=== PATIENT | female | born 1980 | race Caucasian/White ===

== ENCOUNTER 2020-01-23 22:14 | Emergency (ER) | payer OTHER ==
--- NOTE | 2020-01-23 23:06 | ERPHSYRPT ---
- History of Present Illness Time Seen by Provider: 01/23/20 22:40 Source: patient Exam Limitations: no limitations Patient Subjective Stated Complaint: pt states that she has "congestion, cough and hard to breathe", pt states that the symptoms started 3 weeks ago, pt states that the symptoms started to get better than have gotten worse the past few days, pt states that today she was vomiting up mucus from coughing so hard, pt states no fever Triage Nursing Assessment: pt ambulated into the er, pt is axo x4, afribile, vital wnl, dry cough present, white patch on rt eardrum, wheezing present in all lobes, mucus membranes pink and moist Physician History: This is a 39-year-old white female who has had 3-week history of cough congestion sore throat symptoms. Patient has use [id number] Mucinex and [place] cold and flu. She thought she was getting better but in the last few days her symptoms have worsened. Patient's daughter has similar symptoms. Patient denies fever she denies myalgias arthralgias. She has had no nausea vomiting or diarrhea. Patient has taken Keflex in the past without any problems Timing/Duration: week(s) Cough Quality/Degree: moderate, dry cough Possible Cause: occasional episodes Modifying Factors: Improves With: coughing Associated Symptoms: cough, muscle aches, nasal congestion, sore throat, No fever, No chills Allergies/Adverse Reactions: Penicillins Allergy (Mild, Verified 01/23/20 22:41) Rash Sulfa (Sulfonamide Antibiotics) Allergy (Mild, Verified 01/23/20 22:41) Rash Hx Tetanus, Diphtheria Vaccination/Date Given: No Hx Influenza Vaccination/Date Given: No Hx Pneumococcal Vaccination/Date Given: No Immunizations Up to Date: Yes Travel Risk - International Travel Have you traveled outside of the country in past 3 weeks: No Have you or anyone close to you been diagnosed with or: No Do your reside in a community with a known COVID-19 case?: No - Coronavirus Screening Has patient experienced Coronavirus symptoms: No Symptoms experienced: respiratory symptoms (i.e.C[place],shortness of breath) ( Only cough) - Review of Systems Constitutional: No Symptoms Eyes: No Symptoms Ears, Nose, & Throat: No Symptoms Respiratory: Cough Cardiac: No Symptoms Abdominal/Gastrointestinal: No Symptoms, No Abdominal Pain, No Nausea, No Vomiting, No Diarrhea Genitourinary Symptoms: No Symptoms Musculoskeletal: No Symptoms Skin: No Symptoms Neurological: No Symptoms Psychological: No Symptoms Endocrine: No Symptoms Hematologic/Lymphatic: No Symptoms Immunological/Allergic: No Symptoms All Other Systems: Reviewed and Negative - Past Medical History Pertinent Past Medical History: No Neurological History: No Pertinent History ENT History: No Pertinent History Cardiac History: No Pertinent History Respiratory History: No Pertinent History Endocrine Medical History: No Pertinent History Musculoskeletal History: No Pertinent History GI Medical History: No Pertinent History History: No Pertinent History Psycho-Social History: No Pertinent History Female Reproductive Disorders: No Pertinent History - Past Surgical History Past Surgical History: Yes Neuro Surgical History: No Pertinent History Cardiac: No Pertinent History Respiratory: No Pertinent History Gastrointestinal: No Pertinent History Genitourinary: No Pertinent History Musculoskeletal: No Pertinent History Female Surgical History: No Pertinent History Other Surgical History: partial tubalectomy - Social History Smoking Status: Current every day smoker Exposure to second hand smoke: Yes Drug Use: none Patient Lives Alone: No - Female History Hx Now: No - Nursing Vital Signs Nursing Vital Signs: Initial Vital Signs Temperature 98.3 F 01/23/20 22:23 Pulse Rate 84 01/23/20 22:23 Respiratory Rate 17 01/23/20 22:23 Blood Pressure 116/83 01/23/20 22:23 O2 Sat by Pulse Oximetry 96 01/23/20 22:23 Pain Scale Pain Intensity 0 - Physical Exam General Appearance: no apparent distress, alert, anxiety, obese Eye Exam: PERRL/EOMI, eyes nml inspection Ears, Nose, Throat Exam: normal ENT inspection, moist mucous membranes Neck Exam: normal inspection, non-tender, supple, full range of motion Respiratory Exam: normal breath sounds, lungs clear, airway intact, No chest tenderness, No respiratory distress, No accessory muscle use, No rhonchi, No wheezing, No stridor Cardiovascular Exam: regular rate/rhythm, normal heart sounds, normal peripheral pulses Gastrointestinal/Abdomen Exam: soft, normal bowel sounds, No tenderness Pelvic Exam: not done Rectal Exam: not done Back Exam: normal inspection, normal range of motion, No CVA tenderness, No vertebral tenderness Extremity Exam: normal inspection, normal range of motion, pelvis stable Neurologic Exam: alert, oriented x 3, cooperative, program management specialist II-XII nml as tested Skin Exam: normal color, warm, dry Lymphatic Exam: No adenopathy SpO2 Interpretation: normal SpO2: 96 O2 Delivery: Room Air - Course Nursing assessment & vital signs reviewed: Yes - Progress Progress: improved Air Movement: good Progress Note: 01/23/20 23:06 Differential diagnosis: Pneumonia, bronchitis, upper respiratory infection. Medical decision making: This patient symptoms have been present for 3 weeks. I do not feel is necessary to obtain a respiratory panel to evaluate for influenza a B and RSV. I do not feel the patient requires a strep test. We will cover her with antibiotics primarily because of the persistence of this patient's symptoms. Blood Culture(s) Obtained: No Antibiotics given: Yes Counseled pt/family regarding: diagnosis, need for follow-up - Departure Departure Disposition: Home Clinical Impression: Bronchitis Condition: Stable Critical Care Time: No Referrals: [facility] [Primary Care Provider] - Additional Instructions: Drink plenty of fluids. Follow-up with your primary care physician for persistent symptoms. Take your medication as prescribed. Forms: Work/School Release Form Prescriptions: Albuterol 8 gm Mdi Hfa [Ventolin Hfa MDI] 8 gm IH Q4H #1 hfa.aer.ad Cefdinir 300 mg PO BID 7 Days #14 capsule Hydrocodone Bit/Acetaminophen [Hydrocodone-Acetaminophen Soln] 10 ml PO Q6H # 120 ml Prednisone 10 mg [Deltasone 10 mg] 10 mg PO TID #12 tablet
[2020-01-23] MEDS ORDERED: Rocephin 1000 MG INJ IM ONE (23:12)
[2020-01-23] MEDS ORDERED: HYDROCODONE-ACETAMIN 2.5-108/5 ML SOLUTION PO STA (23:14)
[2020-01-23] MEDS ORDERED: XYLOCAINE 1% HCL 20 ML MDV IJ ONE (23:19)
[2020-01-23] MEDS ORDERED: DELTASONE 20 MG ONE (23:32)
[2020-01-23] MEDS ORDERED: HYDROCODONE-ACETAMIN 2.5-108/5 ML SOLUTION ONE (23:32)
[2020-01-23] MEDS ORDERED: Rocephin 1000 MG INJ ONE (23:33)
[2020-01-23 23:51] VITALS: BP 111/79; PULSE 78; O2SAT 98
[2020-01-24] MEDS ORDERED: DELTASONE 20 MG PO ONE (23:13)
== END 2020-01-24 00:02 | disposition home or self-care (01) ==
LOC: ED 22:14
DX: J40 Bronchitis, not specified as acute or chronic (principal)
CPT/HCPCS: 96372; 99284; J0696; A9270-GY

== ENCOUNTER 2024-02-12 00:19 | Emergency (ER) | payer BC, OTHER ==
[2024-02-12 02:44] VITALS: TEMP 96.9
[2024-02-12 03:03] LABS: HCG URINE TEST NEGATIVE (NEGATIVE)
[2024-02-12 03:08] LABS: Appearance Clear (Clear); Bacteria Rare /HPF (None Seen); Bilirubin Negative (Negative); Blood Negative (Negative); Epithelial Cells Rare /HPF (None Seen); Glucose, Urine Negative (Negative); Hyaline Casts NONE SEEN /LPF (0-2); Ketones Negative (Negative); Leukocyte Esterase Small (Negative); Nitrite Negative (Negative); Ph 5.5 (4.6-8.0); Protein,Urine Dip Negative (Negative); RBC 0-2 /HPF (0-5); Specific Gravity <=1.005 (1.005-1.030); Urobilinogen 0.2 mg/dL (0.2)
[2024-02-12 03:09] LABS: ADD URINE CULTURE? NO (NO)
[2024-02-12] MEDS ORDERED: MORPHINE SULFATE 2 MG INJ ONE (03:16)
[2024-02-12] MEDS ORDERED: Zofran 4 MG/2 ML VIAL ONE (03:16)
[2024-02-12] MEDS ORDERED: Sodium Chloride 0.9% 1000 ML 1,000 ML ONE (03:16)
[2024-02-12 03:18] LABS: BASOPHIL % 0.6 % (0.0-0.4); Basophil (Absolute #) 0.05 x10^3/uL (0-0.4); Eosinophil (Absolute #) 0.17 x10^3/uL (0-0.5); Hematocrit 39.8 % (35-47); Hemoglobin 13.9 g/dL (12.0-16.0); IMMATURE GRAN # 0.02 x10^3u/L (0.00-0.03); IMMATURE GRAN % 0.2 % (0.00-0.4); Mean Cell Volume 88.6 fL (78-100); Mean Corpuscular Hgb Concent. 34.9 g/dL (32-36); Mean Platelet Volume 8.7 fL (7.5-11.0); Monocyte (Absolute #) 0.73 x10^3/uL (0.0-1.3); Monocytes % 8.4 % (0.0-12.0); Neutrophil % 43.8 % (36.0-66.0); Platelet Count 323 x10^3/uL (150-450); Red Blood Count 4.49 x10^6/uL (4.1-5.4); Red Cell Distribution Width 12.8 % (11.5-14.0); White Blood Count 8.7 x10^3/uL (4.0-10.5)
[2024-02-12] MEDS: MORPHINE SULFATE 2 MG INJ IV ONE (03:21)
[2024-02-12] MEDS: Zofran 4 MG/2 ML VIAL IV ONE (03:22)
[2024-02-12] MEDS: Sodium Chloride 0.9% 1000 ML 1,000 ML IV STA (03:22)
[2024-02-12 03:31] LABS: ALBUMIN 3.8 g/dL (3.5-5.0); ALKALINE PHOSPHATASE 84 U/L (38-126); ANION GAP 13.2 MEQ/L (5-15); BILIRUBIN,TOTAL < 0.10 mg/dL (0.2-1.3); BLOOD UREA NITROGEN 7 mg/dL (7-17); CHLORIDE 105 mmol/L (98-107); Calcium 9.2 mg/dL (8.4-10.2); Carbon Dioxide 21 mmol/L (22-30); Creatinine 1 0.86 mg/dL (0.52-1.04); EST GLOMERULAR FILTRATION RATE 85.9 ML/MIN; Glucose 107 mg/dL (74-106); LIPASE 89 U/L (23-300); Potassium 3.7 mmol/L (3.5-5.1); SGOT/AST 23 U/L (14-36); SGPT/ALT 15 U/L (0-35); SODIUM 135 mmol/L (135-145); Total Protein 7.5 g/dL (6.3-8.2)
--- NOTE | 2024-02-12 04:49 | ERPHSYRPT ---
- History of Present Illness Time Seen by Provider: 02/12/24 02:30 Historian: patient Exam Limitations: no limitations Patient Subjective Stated Complaint: pt states that on Sunday at approx 1400 she started experiencing right flank pain that is nonradiating, constant, ache, stabbing. at that time she thought she had "just slept wrong" but it continued to get worse over the weekend with tonight it being excrutiating pain requiring her to leave work to come to ED. at approx 2130 last night she started having on and off episodes of nausea without vomiting with an episode of dry heaves at approx 2330. Triage Nursing Assessment: pt ambulated into room 4 independently with very slow, guarded, steady gait after standing on scale for weight acquisition and to bathroom for urine sample collection. pt is alert and oriented times three, able to move all extremities (limited to right leg due to pain), able to speak in complete sentences, and with resp even and unlabored. denies numbness, tingling, sob, difficulty breathing, lightheadedness, dizziness, difficulty with urinary or bowel elimination, change to appetite, nausea at this time, fever, cough, chills, but does endorse slight heartburn which isn't uncommon for pt. skin is warm, dry, pink, and intact. face is very flushed and darker pink. pt states that her face is always a little more pink and that she also has a little bit of a sunburn. Physician History: 43yo f presents for right side flank pain x 3d. Pt states she woke up on Sunday w/ dull right flank pain, states she assumed she was getting UTI so took AZO x 3d w/o relief of pain. Pt states she developed n/v and chills earlier today w/ decreased PO intake. Pt denies dysuria, hematuria, frequency, diarrhea. Pt denies any trauma to the low back or flank. Pt has hx of tubal ligation, no other abdominal surgeries. Timing/Duration: day(s) (3) Activities at Onset: sleep Quality: sharpness Abdominal Pain Onset Location: flank Pain Radiation: no radiation Severity of Pain-Max: mild Severity of Pain-Current: mild Allergies/Adverse Reactions: Penicillins Allergy (Mild, Verified 02/12/24 02:12) Rash Sulfa (Sulfonamide Antibiotics) Allergy (Mild, Verified 02/12/24 02:12) Rash Home Medications: No Reportable Medications [No Reported Medications] 02/12/24 [History] Hx Tetanus, Diphtheria Vaccination/Date Given: No Hx Influenza Vaccination/Date Given: No Hx Pneumococcal Vaccination/Date Given: No Immunizations Up to Date: No Travel Risk - International Travel Have you traveled outside of the country in past 3 weeks: No - Emerging Infectious Disease Are you exhibiting symptoms associated with any current EIDs: No - Review of Systems Constitutional: Chills Respiratory: No Symptoms Cardiac: No Symptoms Abdominal/Gastrointestinal: Nausea, Vomiting, No Diarrhea, No Hematemesis, No Hematochezia Genitourinary Symptoms: No Dysuria, No Frequency, No Hematuria, No Urgency Musculoskeletal: Back Pain - Past Medical History Pertinent Past Medical History: Yes Neurological History: No Pertinent History ENT History: No Pertinent History Cardiac History: Other Respiratory History: No Pertinent History Endocrine Medical History: No Pertinent History Musculoskeletal History: No Pertinent History GI Medical History: No Pertinent History History: No Pertinent History Psycho-Social History: No Pertinent History Female Reproductive Disorders: No Pertinent History Other Medical History: hypotension - Past Surgical History Past Surgical History: Yes Neuro Surgical History: No Pertinent History Cardiac: No Pertinent History Respiratory: No Pertinent History Gastrointestinal: No Pertinent History Genitourinary: No Pertinent History Musculoskeletal: No Pertinent History Female Surgical History: No Pertinent History, Other Other Surgical History: partial tubalectomy. ovarian cyst removal x2 - Female History Hx Last Menstrual Period: 01/21/24 Hx Now: No - Social History Smoking Status: Current every day smoker Exposure to second hand smoke: No Drug Use: none Patient Lives Alone: No - Nursing Vital Signs Nursing Vital Signs: Initial Vital Signs Temperature 96.9 F 02/12/24 02:22 Pulse Rate 83 02/12/24 02:22 Respiratory Rate 18 02/12/24 02:22 Blood Pressure 141/86 02/12/24 02:22 O2 Sat by Pulse Oximetry 99 02/12/24 02:22 Pain Scale Pain Intensity 7 - Physical Exam General Appearance: no apparent distress Respiratory Exam: normal breath sounds, lungs clear, airway intact, No chest tenderness, No respiratory distress Cardiovascular Exam: regular rate/rhythm, normal heart sounds, normal peripheral pulses Gastrointestinal/Abdomen Exam: soft, normal bowel sounds, No tenderness, No distention, No guarding Back Exam: CVA tenderness, muscle spasm, point tenderness, No vertebral tenderness Neurologic Exam: alert, oriented x 3, cooperative SpO2 Interpretation: normal SpO2: 96 O2 Delivery: Room Air Ordered Tests: Active Orders 24 hr Category Date Time Status ABDOMEN AND PELVIS W/0 CONTRAS [CT] Stat Exams 02/12/24 03:04 Completed CBC W DIFF Stat Lab 02/12/24 03:15 Completed CMP Stat Lab 02/12/24 03:15 Completed HCG QUALITATIVE, URINE Stat Lab 02/12/24 02:53 Completed LIPASE Stat Lab 02/12/24 03:15 Completed UA W/RFX UR CULTURE Stat Lab 02/12/24 02:53 Completed Medication Summary Discontinued Medications Generic Name Dose Route Start Last Admin Trade Name Freq PRN Reason Stop Dose Admin Sodium Chloride 1,000 mls @ 999 mls/hr 02/12/24 03:03 02/12/24 04:28 Sodium Chloride 0.9% 1000 Ml IV 02/12/24 04:03 Infused .Q1H1M STA Infusion Sodium Chloride Confirm 02/12/24 03:16 Sodium Chloride 0.9% 1000 Ml Administered 02/12/24 03:17 Dose 1,000 mls @ ud .ROUTE .STK-MED ONE Ketorolac Tromethamine 30 mg 02/12/24 04:51 02/12/24 04:57 Ketorolac Tromethamine 30 Mg/Ml Inj IV 02/12/24 04:52 30 mg STAT ONE Administration Ketorolac Tromethamine Confirm 02/12/24 04:54 Ketorolac Tromethamine 30 Mg/Ml Inj Administered 02/12/24 04:55 Dose 30 mg .ROUTE .STK-MED ONE Morphine Sulfate 2 mg 02/12/24 03:03 02/12/24 03:21 Morphine Sulfate 2 Mg/Ml Inj IV 02/12/24 03:04 2 mg STAT ONE Administration Morphine Sulfate Confirm 02/12/24 03:16 Morphine Sulfate 2 Mg/Ml Inj Administered 02/12/24 03:17 Dose 2 mg .ROUTE .STK-MED ONE Ondansetron HCl 4 mg 02/12/24 03:03 02/12/24 03:22 Ondansetron Hcl 4 Mg/2 Ml Vial IV 02/12/24 03:04 4 mg STAT ONE Administration Ondansetron HCl Confirm 02/12/24 03:16 Ondansetron Hcl 4 Mg/2 Ml Vial Administered 02/12/24 03:17 Dose 4 mg .ROUTE .STK-MED ONE Lab/Rad Data: Laboratory Result Diagrams 02/12/24 03:15 02/12/24 03:15 Laboratory Results 02/12/24 02/12/24 02/12/24 Range/Units 03:15 03:15 02:53 WBC 8.7 (4.0-10.5) x10^3/uL RBC 4.49 (4.1-5.4) x10^6/uL Hgb 13.9 (12.0-16.0) g/dL Hct 39.8 (35-47) % MCV 88.6 (78-100) fL MCH 31.0 (26-32) pg MCHC 34.9 (32-36) g/dL RDW 12.8 (11.5-14.0) % Plt Count 323 (150-450) x10^3/uL MPV 8.7 (7.5-11.0) fL Gran % 43.8 (36.0-66.0) % Immature Gran % (Auto) 0.2 (0.00-0.4) % Nucleat RBC Rel Count 0.0 (0.00-0.1) % Eos # (Auto) 0.17 (0-0.5) x10^3/uL Immature Gran # (Auto) 0.02 (0.00-0.03) x10^3u/L Absolute Lymphs (auto) 3.90 (1.0-4.6) x10^3/uL Absolute Monos (auto) 0.73 (0.0-1.3) x10^3/uL Absolute Nucleated RBC 0.00 (0.00-0.01) x10^3u/L Lymphocytes % 45.0 H (24.0-44.0) % Monocytes % 8.4 (0.0-12.0) % Eosinophils % 2.0 (0.00-5.0) % Basophils % 0.6 (0.0-0.4) % Absolute Granulocytes 3.80 (1.4-6.9) x10^3/uL Basophils # 0.05 (0-0.4) x10^3/uL Sodium 135 (135-145) mmol/L Potassium 3.7 (3.5-5.1) mmol/L Chloride 105 (98-107) mmol/L Carbon Dioxide 21 L (22-30) mmol/L Anion Gap 13.2 (5-15) MEQ/L BUN 7 (7-17) mg/dL Creatinine 0.86 (0.52-1.04) mg/dL Estimated GFR 85.9 ML/MIN Glucose 107 H (74-106) mg/dL Calcium 9.2 (8.4-10.2) mg/dL Total Bilirubin < 0.10 L (0.2-1.3) mg/dL AST 23 (14-36) U/L ALT 15 (0-35) U/L Alkaline Phosphatase 84 (38-126) U/L Serum Total Protein 7.5 (6.3-8.2) g/dL Albumin 3.8 (3.5-5.0) g/dL Lipase 89 (23-300) U/L Urine Color (Yellow) Urine Appearance (Clear) Urine pH (4.6-8.0) Ur Specific [place] (1.005-1.030) Urine Protein (Negative) Urine Glucose (UA) (Negative) mg/dL Urine Ketones (Negative) Urine Blood (Negative) Urine Nitrite (Negative) Urine Bilirubin (Negative) Urine Urobilinogen (0.2) mg/dL Ur Leukocyte Esterase (Negative) U Hyaline Cast (Auto) (0-2) /LPF Urine Microscopic RBC (0-5) /HPF Urine Microscopic WBC (0-5) /HPF Ur Epithelial Cells (None Seen) /HPF Urine Bacteria (None Seen) /HPF Urine Culture Reflexed (NO) Urine HCG, Qual NEGATIVE (NEGATIVE) 02/12/24 Range/Units 02:53 WBC (4.0-10.5) x10^3/uL RBC (4.1-5.4) x10^6/uL Hgb (12.0-16.0) g/dL Hct (35-47) % MCV (78-100) fL MCH (26-32) pg MCHC (32-36) g/dL RDW (11.5-14.0) % Plt Count (150-450) x10^3/uL MPV (7.5-11.0) fL Gran % (36.0-66.0) % Immature Gran % (Auto) (0.00-0.4) % Nucleat RBC Rel Count (0.00-0.1) % Eos # (Auto) (0-0.5) x10^3/uL Immature Gran # (Auto) (0.00-0.03) x10^3u/L Absolute Lymphs (auto) (1.0-4.6) x10^3/uL Absolute Monos (auto) (0.0-1.3) x10^3/uL Absolute Nucleated RBC (0.00-0.01) x10^3u/L Lymphocytes % (24.0-44.0) % Monocytes % (0.0-12.0) % Eosinophils % (0.00-5.0) % Basophils % (0.0-0.4) % Absolute Granulocytes (1.4-6.9) x10^3/uL Basophils # (0-0.4) x10^3/uL Sodium (135-145) mmol/L Potassium (3.5-5.1) mmol/L Chloride (98-107) mmol/L Carbon Dioxide (22-30) mmol/L Anion Gap (5-15) MEQ/L BUN (7-17) mg/dL Creatinine (0.52-1.04) mg/dL Estimated GFR ML/MIN Glucose (74-106) mg/dL Calcium (8.4-10.2) mg/dL Total Bilirubin (0.2-1.3) mg/dL AST (14-36) U/L ALT (0-35) U/L Alkaline Phosphatase (38-126) U/L Serum Total Protein (6.3-8.2) g/dL Albumin (3.5-5.0) g/dL Lipase (23-300) U/L Urine Color Yellow (Yellow) Urine Appearance Clear (Clear) Urine pH 5.5 (4.6-8.0) Ur Specific [place] <=1.005 (1.005-1.030) Urine Protein Negative (Negative) Urine Glucose (UA) Negative (Negative) mg/dL Urine Ketones Negative (Negative) Urine Blood Negative (Negative) Urine Nitrite Negative (Negative) Urine Bilirubin Negative (Negative) Urine Urobilinogen 0.2 (0.2) mg/dL Ur Leukocyte Esterase Small A (Negative) U Hyaline Cast (Auto) NONE SEEN (0-2) /LPF Urine Microscopic RBC 0-2 (0-5) /HPF Urine Microscopic WBC 3-5 (0-5) /HPF Ur Epithelial Cells Rare (None Seen) /HPF Urine Bacteria Rare A (None Seen) /HPF Urine Culture Reflexed NO (NO) Urine HCG, Qual (NEGATIVE) - Progress Progress: improved Progress Note: 02/12/24 05:20 CT abd/pel results A 3.5 mm calcified nodule/granuloma in the right lung base. Spondylotic changes in the visualized spine. IMPRESSION: Bilateral nonobstructing renal calculi, measuring approximately 1 to 2 mm in size. Suggestion of/subtle fat stranding around the partially distended gallbladder. No discrete radiopaque calculus. If clinically indicated, sonographic correlation would be helpful. Hepatomegaly with fatty infiltration. pt reports feeling significant improvement following dose of to no nausea/vomiting since dose of zofran given CT results discussed w/ pt in detail pt requesting to go home plan to dc home w/ close PCP f/u this week (Dr Santos) likely oblique muscle strain/sprain and possible gastritis instructed to continue using tylenol/ice/heat for discomfort rest when possible, avoid lifting/twisting/bending at the waist when possible return to ED if: fevers occur and do not resolve w/ tylenol, develop significant vomiting, pain becomes unbearable, unable to tolerate oral intake, develop numbness/tingling in LEs 02/12/24 05:24 - Departure Clinical Impression: Muscle strain, Nausea, Flank pain Condition: Stable Critical Care Time: No Referrals: ALE SANTOS MD [Primary Care Provider] - Follow up/PCP as directed Additional Instructions: plan to dc home w/ close PCP f/u this week (Dr Santos) likely oblique muscle strain/sprain and possible gastritis instructed to continue using tylenol/ice/heat for discomfort rest when possible, avoid lifting/twisting/bending at the waist when possible return to ED if: fevers occur and do not resolve w/ tylenol, develop significant vomiting, pain becomes unbearable, unable to tolerate oral intake, develop numbness/tingling in LEs
[2024-02-12 04:51] VITALS: RESP 20
[2024-02-12] MEDS ORDERED: TORAdol 30 mg Injection ONE (04:54)
[2024-02-12] MEDS: TORAdol 30 mg Injection IV ONE (04:57)
[2024-02-12 05:02] VITALS: BP 119/82; PULSE 77
--- NOTE | 2024-02-12 05:10 | XRAY ---
CLINICAL HISTORY: flank pain COMPARISON: None TECHNIQUE: Axial sections of CT abdomen and pelvis were obtained without administration of intravenous contrast. Reformatted coronal and sagittal images were acquired. One of the following dose reduction techniques were utilized for this exam: Automated exposure control, adjustment of the mA and/or kV according to patient size, and use of iterative reconstruction. FINDINGS: Enlarged fatty liver measuring approximately 23 cm in maximum craniocaudal dimension. No evidence of intrahepatic biliary dilatation. Suggestion of/subtle fat stranding around the partially distended gallbladder. No discrete radiopaque calculus. If clinically indicated sonographic correlation would be helpful. Spleen, pancreas and bilateral adrenal glands appear unremarkable. Both kidneys are normal in size and shape. Bilateral nonobstructing renal calculi, measuring approximately 1 to 2 mm in size. No hydronephrosis. The urinary bladder is normally distended. No intravesical abnormality or abnormal wall thickening. A small cyst measuring approximately 1.3 x 1.4 cm in the right ovary, likely physiological. Uterus and bilateral adnexa otherwise appear unremarkable. The stomach is partially distended. Visualized large and small bowel loops appear grossly unremarkable. No CT evidence of acute appendicitis. No ascites or pneumoperitoneum. No significant abdominal or pelvic lymphadenopathy. A 3.5 mm calcified nodule/granuloma in the right lung base. Spondylotic changes in the visualized spine. IMPRESSION: Bilateral nonobstructing renal calculi, measuring approximately 1 to 2 mm in size. Suggestion of/subtle fat stranding around the partially distended gallbladder. No discrete radiopaque calculus. If clinically indicated, sonographic correlation would be helpful. Hepatomegaly with fatty infiltration. Electronically Signed by: Aly Villalobos MD. (02/12/2024 05:05:17 EDT)
[2024-02-12 05:24] VITALS: O2SAT 96
== END 2024-02-12 05:38 | disposition home or self-care (01) ==
LOC: ED 00:19
DX: S39.011A Strain of muscle, fascia and tendon of abdomen, initial encounter (principal); R11.0 Nausea; R10.9 Unspecified abdominal pain; Z72.0 Tobacco use
CPT/HCPCS: 36000; 36415; 74176; 80053; 81001; 81025; 83690; 85025; 96360; 96374; 96375; 99284; J1885; J2270; J2405